=== PATIENT | female | born 1955 | race Caucasian/White ===

== ENCOUNTER 2021-10-09 21:03 | Inpatient (IN) ==
[2021-10-09] MEDS ORDERED: 0.9 % SODIUM CHLORIDE 1,000 ML IV ONE (21:12)
[2021-10-09 21:57] LABS: POC Blood Urea Nitrogen 33 mg/dL (6-20); POC CO2 22 mmol/L (22-30); POC Calcium, Ionized 1.06 mmEq/L (1.16-1.32); POC Chloride 99 mEq/L (96-108); POC Creatinine 3.3 mg/dL (0.6-1.2); POC Glucose, Random 136 mg/dL (70-105); POC Hematocrit 30 % (36-48); POC Potassium 4.8 mEql/L (3.3-5.1); POC Sodium 132 mEq/L (133-145)
[2021-10-09 22:42] LABS: Basophils # (Auto) 0.06 K/mcL (0.00-0.30); Basophils % (Auto) 0.6 % (0.0-2.0); Eosinophils # (Auto) 0.35 K/mcL (0.00-0.70); Eosinophils % (Auto) 3.3 % (0.0-7.0); Hematocrit 31.7 % (34.1-44.9); Hemoglobin 10.3 g/dL (11.2-15.7); Lymphocytes % (Auto) 11.3 % (15.5-49.0); Mean Cell Volume 93.5 fL (80.0-100.0); Mean Corpuscular HGB Conc 32.5 g/dL (31.0-36.0); Mean Platelet Volume 10.3 fL (7.4-10.4); Monocytes # (Auto) 0.82 K/mcL (0.10-0.90); Monocytes % (Auto) 7.7 % (1.0-12.0); Neutrophils % (Auto) 77.1 % (38.0-78.0); Platelet Count 314 K/mcL (140-440); RBC 3.39 M/mcL (3.59-5.38); Red Cell Distribution Width 14.7 % (11.5-14.5); WBC 10.7 K/mcL (4.5-11.0)
[2021-10-09 23:01] LABS: ALT/SGPT 21 U/L (<40); AST/SGOT 34 U/L (<32); Albumin 3.6 gm/dL (3.2-5.2); Albumin/Globulin Ratio 1.1 (1.0-2.3); Alkaline Phosphatase 126 U/L (39-117); Bilirubin,Total 0.3 mg/dL (0.1-1.0); Blood Urea Nitrogen 32 mg/dL (8-23); Calcium 8.3 mg/dL (8.6-10.4); Carbon Dioxide 20 mmol/L (22-30); Chloride 94 mmol/L (96-108); Globulin 3.4 gm/dL (2.2-3.7); Glomerular Filtration Rate 16; Glucose 137 mg/dL (70-105)
[2021-10-09 23:21] LABS: Appearance,Urine HAZY (Clear); Bilirubin,Urine Negative (Negative); Color,Urine YELLOW; Culture Indicated,Urine No; Glucose,Urine (UA) Negative (Negative); Ketones,Urine Negative (Negative); Leukocyte Esterase,Urine Negative /uL (Negative); Nitrate,Urine Negative (Negative); Protein,Urine Negative (Negative); Specific Gravity,Urine 1.014 (1.000-1.035); Urine Blood Negative (Negative); Urobilinogen,Urine Negative
[2021-10-09] MEDS ORDERED: LACTATED RINGERS 1,000 ML IV ONE (23:41)
--- NOTE | 2021-10-09 23:50 | Internal Med History&Physical ---
HPI History of Present Illness Patient information: Note initiated : 10/09/21 at 11:48 pm Service Date, if different from initiated Date: [] Patient: Maria T King a 66 y/o F admitted on for Slurred speech, weak. Chief Complaint: [] History of present illness: Ms. King is a 66 year old female with a history of hypertension, hyperlipidemia, type 2 diabetes mellitus, GERD, chronic pain, breast cancer status post chemotherapy and radiation therapy who presented to the emergency department for generalized weakness and was found to have an acute kidney injury. The patient says that she has been feeling generally weak since she completed chemotherapy recently. The patient has a port in her right upper chest for treatment of the breast cancer. In the ED, the patient was tachycardic, low normal blood pressure, had an oxygen requirement of 2 L/min. There is no leukocytosis, hemoglobin was 10.3. Chemistry panel showed a sodium of 128, creatinine 2.9, lactic acid was 2.2. Patient received IV fluids. Chest x-ray was remarkable for possible left upper lobe infiltrates. Hospital medicine was consulted for admission. Review of systems Constitutional: Positive for fatigue Eyes: no vision changes or pain Cardiovascular: no chest pain, no palpitations Respiratory: no cough or dyspnea Gastrointestinal: no abdominal pain, no nausea, vomiting, or diarrhea Genitourinary: no dysuria or difficulty voiding Musculoskeletal: no arthralgia or myalgia Integumentary: no skin lesion or wound Neurological: no focal weakness or numbness Psychiatric: no anxiety or depression Physical exam Head: Atraumatic, normal inspection. Eyes: normal appearance, no scleral icterus. Neck: full ROM Respiratory: no respiratory distress. Cardiovascular: normal rate and rhythm, S1, S2. GI/Abdominal: soft, nontender, no guarding. Extremities: full range of motion, nontender. Neurological: CN II-XII intact, intact motor, intact sensation. Psychiatric: normal mood. Skin: warm, normal color PFSH PFSH All Active Problems (Updated 10/10/21 @ 02:40 by Grayson Pedraza DO) YAMEL (acute kidney injury) (Acute) Weakness (Acute) MEDS/ALLERGIES Home Medications and Allergies Home Medications Medication Instructions Recorded Confirmed Type amitriptyline 150 mg tablet 150 mg PO QHS 10/09/21 10/09/21 History atorvastatin 40 mg PO DAILY 10/09/21 10/09/21 History gabapentin 600 mg tablet 600 mg PO TID 10/09/21 10/09/21 History metformin 500 mg tablet 500 mg PO BID 10/09/21 10/09/21 History oxybutynin chloride 5 mg tablet 5 mg PO QDAY 10/09/21 10/09/21 History hydrochlorothiazide 12.5 mg capsule 12.5 mg PO QDAY 10/10/21 10/10/21 History letrozole 2.5 mg tablet 1 tab PO QDAY 10/10/21 10/10/21 History lisinopril 5 mg tablet 1 tab PO QDAY 10/10/21 10/10/21 History omeprazole 40 mg capsule,delayed 1 cap PO QDAY 10/10/21 10/10/21 History release oxycodone 10 mg tablet 1 tab PO Q4-6HP PRN 10/10/21 10/10/21 History sumatriptan succinate 100 mg tablet 100 mg PO PRN PRN 10/10/21 10/10/21 History Allergies Allergy/AdvReac Type Severity Reaction Status Date / Time tramadol AdvReac Intermediate Rash Verified 10/09/21 23:08 EXAM Constitutional Vitals: Pulse Resp BP Pulse Ox 96 H 25 H 124/83 93 10/09/21 22:57 10/09/21 22:57 10/09/21 22:46 10/09/21 22:57 DATA Data Completed and Pending Labs: Labs from last 24 hours 10/09/21 10/09/21 10/09/21 22:15 21:47 21:47 WBC RBC Hgb Hct POC Hct MCV MCH MCHC RDW Plt Count MPV Neut % (Auto) Lymph % (Auto) [place] % (Auto) Eos % (Auto) Baso % (Auto) Lymph # (Auto) [place] # (Auto) Eos # (Auto) Baso # (Auto) Absolute Neutrophils VBG Lactic Acid 2.2 H POC Sodium Sodium POC Potassium Potassium POC Chloride Chloride Carbon Dioxide POC Total CO2 Anion Gap POC BUN BUN Creatinine POC Creatinine GFR Calculation Glucose POC Glucose Calcium POC WB Ioniz Calcium Total Bilirubin AST ALT Alkaline Phosphatase Troponin T 0.02 Total Protein Albumin Globulin Albumin/Globulin Ratio Urine Color Yellow Urine Appearance Hazy A Urine pH 5.0 Ur Specific [place] 1.014 Urine Protein Negative Urine Glucose (UA) Negative Urine Ketones Negative Urine Occult Blood Negative Urine Nitrate Negative Urine Bilirubin Negative Urine Urobilinogen Negative Ur Leukocyte Esterase Negative Ur Culture Indicated? No 10/09/21 10/09/21 21:47 21:47 WBC 10.7 RBC 3.39 L Hgb 10.3 L Hct 31.7 L POC Hct 30 L MCV 93.5 MCH 30.4 MCHC 32.5 RDW 14.7 H Plt Count 314 MPV 10.3 Neut % (Auto) 77.1 Lymph % (Auto) 11.3 L Sherman % (Auto) 7.7 Eos % (Auto) 3.3 Baso % (Auto) 0.6 Lymph # (Auto) 1.20 L Sherman # (Auto) 0.82 Eos # (Auto) 0.35 Baso # (Auto) 0.06 Absolute Neutrophils 8.23 H VBG Lactic Acid POC Sodium 132 L Sodium 128 L POC Potassium 4.8 Potassium 4.6 POC Chloride 99 Chloride 94 L Carbon Dioxide 20 L POC Total CO2 22 Anion Gap 14.0 POC BUN 33 H BUN 32 H Creatinine 2.9 H POC Creatinine 3.3 H GFR Calculation 16 Glucose 137 H POC Glucose 136 H Calcium 8.3 L POC WB Ioniz Calcium 1.06 L Total Bilirubin 0.3 AST 34 H ALT 21 Alkaline Phosphatase 126 H Troponin T Total Protein 7.0 Albumin 3.6 Globulin 3.4 Albumin/Globulin Ratio 1.1 Urine Color Urine Appearance Urine pH Ur Specific [place] Urine Protein Urine Glucose (UA) Urine Ketones Urine Occult Blood Urine Nitrate Urine Bilirubin Urine Urobilinogen Ur Leukocyte Esterase Ur Culture Indicated? A/P Narrative A/P Narrative: Assessment: 66 year old female with a history of hypertension, hyperlipidemia, type 2 diabetes mellitus, GERD, chronic pain, breast cancer admitted for acute kidney injury and generalized weakness. The patient was moderately hyponatremic on admission. Lactic acid was 2.2. #Acute kidney injury -probably prerenal YAMEL -UA was benign -baseline renal function unknown #Possible left upper lobe infiltrates. #Mild lactic acid elevation #Hyponatremia, moderate #Generalized weakness #Type 2 diabetes mellitus #Normocytic anemia #Essential Hypertension #Hyperlipidemia #GERD #Chronic pain intermittently on opioids #History of breast cancer still has a port #Obesity BMI 40 Plan -IV fluid, monitor renal function and urine output. -Hold home lisinopril and metformin. -Ultrasound bilateral renal ultrasound. -CT chest without contrast. -Procalcitonin. -TSH and morning cortisol. -VBG to evaluate for CO2 retention. -Monitor vitals, if fever consider empiric abx as the patient has a port. -Follow blood cultures. -Follow PORSHA NAHED antigen from the ED. -Check respiratory panel 1 and 2. -Check hemoglobin A1c. -Urine drug screen. -Repeat lactic acid until downtrending. -Monitor hemoglobin, sodium. -Correction Humalog SSI-low. -Home medications reconciliation. 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 -Consistent carbohydrate diet. -PT consult. -DVT prophylaxis: Heparin SQ -Disposition: probably home when stable. Time Spent With Patient Time: Total time spent is greater than 50% in coordination of care (as documented) at patient's floor/unit and/or counseling patient:
[2021-10-10] MEDS ORDERED: DEXTROSE 31 GM ORAL.SUSP PO PRN (01:02)
[2021-10-10] MEDS ORDERED: ONDANSETRON 4 MG/2 ML VIAL IV PRN (01:02)
[2021-10-10] MEDS ORDERED: DEXTROSE 50% 50 ML VIAL IV PRN (01:02)
[2021-10-10] MEDS: ACETAMINOPHEN 325 MG TABLET PO PRN ×2 (02:16→09:15)
[2021-10-10] MEDS ORDERED: ACETAMINOPHEN 325 MG TABLET PO ONE (02:22)
[2021-10-10 02:37] LABS: Amphetamine Screen,Urine None detected; Barbiturate Screen,Urine None detected; Benzodiazepines Screen,Urine None detected; Cannabinoid Screen,Urine None detected; Cocaine Screen,Urine None detected; Opiate Screen,Urine Suspect Positive; Oxycodone, Urine Screen Suspect Positive; Phencyclidine Screen,Urine None detected
[2021-10-10] MEDS: LACTATED RINGERS 1,000 ML IV SCH ×4 (02:37→19:55)
--- NOTE | 2021-10-10 02:40 | Emergency Department Note ---
HPI General Chief complaint: Stroke Symptoms Stated complaint: Slurred speech, weak Time Seen by Provider: 10/09/21 21:12 Source: family Mode of arrival: other Limitations: altered mental status (Fatigued but able to answer direct questions) History of Present Illness HPI Narrative: Narrative: 66-year-old female with history of diabetes hypertension hyperlipidemia, chronic pain on chronic opiates (none taken over the past several days), breast cancer previously with chemo and radiation, port still in but has not received infusions in years presents with family for evaluation of generalized weakness that started this morning. She was in normal state of health, had slightly extended amount of sleep last night, but this morning seemed generally weak and fatigued and to her family sent initially like she was having some slurred speech. She has not had any fever or chills. She denies cough or congestion. She denies chest pain. She denies neck pain. She denies any trauma. She denies numbness or tingling or any focal weakness. She denies abdominal pain area. She denies dysuria or flank pain. Notable rashes. She has been eating and drinking normally by family report. Related Data Home Medications Medication Instructions Recorded Confirmed amitriptyline 150 mg tablet 150 mg PO QHS 10/09/21 10/09/21 atorvastatin 40 mg PO DAILY 10/09/21 10/09/21 gabapentin 600 mg tablet 600 mg PO TID 10/09/21 10/09/21 metformin 500 mg tablet 500 mg PO BID 10/09/21 10/09/21 oxybutynin chloride 5 mg tablet 5 mg PO QDAY 10/09/21 10/09/21 hydrochlorothiazide 12.5 mg capsule 12.5 mg PO QDAY 10/10/21 10/10/21 letrozole 2.5 mg tablet 1 tab PO QDAY 10/10/21 10/10/21 lisinopril 5 mg tablet 1 tab PO QDAY 10/10/21 10/10/21 omeprazole 40 mg capsule,delayed 1 cap PO QDAY 10/10/21 10/10/21 release oxycodone 10 mg tablet 1 tab PO Q4-6HP PRN 10/10/21 10/10/21 sumatriptan succinate 100 mg tablet 100 mg PO PRN PRN 10/10/21 10/10/21 Allergies Allergy/AdvReac Type Severity Reaction Status Date / Time tramadol AdvReac Intermediate Rash Verified 10/09/21 23:08 Review of Systems ROS ROS Narrative: Narrative: All systems ED: reviewed and negative except as stated. PFSH Narrative Patient History Narrative: Narrative: Medical/Surgical/Family History All Active Problems (Updated 10/10/21 @ 02:40 by Grayson Pedraza DO) YAMEL (acute kidney injury) (Acute) Weakness (Acute) Social History Smoking Status: Never smoker Exam Narrative Narrative: Narrative: General Limitations: altered mental status (Fatigued but able to answer direct questions) General appearance: Present sleepy Head Head: Present atraumatic and normocephalic Eye Eye: Present normal appearance, PERRL and EOMI; Absent nystagmus ENT ENT: Present normal oropharynx and mucous membranes dry Neck Neck: Present normal inspection and full ROM Chest Chest: Present normal inspection and symmetric chest wall rise Respiratory Respiratory: Absent respiratory distress Cardiovascular Cardiovascular: Present regular rate and normal rhythm Adbominal Abdominal: Present soft; Absent distention or tenderness Extremities Extremities: Present normal inspection and full ROM; Absent pedal edema Back Back: Present normal inspection and full ROM; Absent CVA tenderness (R) or CVA tenderness (L) Neurological Neurological: Present oriented X3, CN II-XII intact and other (NIH stroke scale 0); Absent motor sensory deficit Psychiatric Psychiatric: Present normal affect and normal mood Skin Skin: Present warm (WNL), dry and normal color Course Vital Signs Vital signs: Vital Signs Pulse Rate 96 H 10/09/21 21:04 Respiratory Rate 12 10/09/21 21:04 Blood Pressure 127/87 10/09/21 21:04 Pulse Oximetry (%) 91 10/09/21 21:04 Temperature 98.5 F 10/10/21 00:54 Pulse Rate 99 H 10/10/21 00:54 Respiratory Rate 20 10/10/21 00:54 Blood Pressure 111/71 10/10/21 00:54 Pulse Oximetry (%) 93 10/10/21 00:54 MDM MDM Narrative Medical decision making narrative: Narrative: Patient with generalized global weakness since this morning. She does have acute kidney injury, unclear etiology at this point is by report she has been keeping hydrated. She is given IV fluids. No postobstructive pattern. She does not have any clear source of infection so we will hold off on antibiotics and she will be monitored inpatient for further care. Blood cultures were sent. Urinalysis is normal. Lab Data Lab results reviewed: Yes I reviewed the patient's lab results. Result diagrams: 10/09/21 21:47 10/09/21 21:47 Labs: Lab Results 10/09/21 10/09/21 10/09/21 Range/Units 21:47 21:47 21:47 WBC 10.7 (4.5-11.0) K/mcL RBC 3.39 L (3.59-5.38) M/mcL Hgb 10.3 L (11.2-15.7) g/dL Hct 31.7 L (34.1-44.9) % POC Hct 30 L (36-48) % MCV 93.5 (80.0-100.0) fL MCH 30.4 (26.0-34.0) pg MCHC 32.5 (31.0-36.0) g/dL RDW 14.7 H (11.5-14.5) % Plt Count 314 (140-440) K/mcL MPV 10.3 (7.4-10.4) fL Neut % (Auto) 77.1 (38.0-78.0) % Lymph % (Auto) 11.3 L (15.5-49.0) % [place] % (Auto) 7.7 (1.0-12.0) % Eos % (Auto) 3.3 (0.0-7.0) % Baso % (Auto) 0.6 (0.0-2.0) % Lymph # (Auto) 1.20 L (1.50-4.80) K/mcL Williams # (Auto) 0.82 (0.10-0.90) K/mcL Eos # (Auto) 0.35 (0.00-0.70) K/mcL Baso # (Auto) 0.06 (0.00-0.30) K/mcL Absolute Neutrophils 8.23 H (1.80-8.00) K/mcL VBG Lactic Acid 2.2 H (0.5-2.0) mmol/L POC Sodium 132 L (133-145) mEq/L Sodium 128 L (133-145) mmol/L POC Potassium 4.8 (3.3-5.1) mEql/L Potassium 4.6 (3.3-5.1) mmol/L POC Chloride 99 (96-108) mEq/L Chloride 94 L (96-108) mmol/L Carbon Dioxide 20 L (22-30) mmol/L POC Total CO2 22 (22-30) mmol/L Anion Gap 14.0 (8.0-16.0) POC BUN 33 H (6-20) mg/dL BUN 32 H (8-23) mg/dL Creatinine 2.9 H (0.6-1.1) mg/dL POC Creatinine 3.3 H (0.6-1.2) mg/dL GFR Calculation 16 Glucose 137 H (70-105) mg/dL POC Glucose 136 H (70-105) mg/dL Calcium 8.3 L (8.6-10.4) mg/dL POC WB Ioniz Calcium 1.06 L (1.16-1.32) mmEq/L Total Bilirubin 0.3 (0.1-1.0) mg/dL AST 34 H (<32) U/L ALT 21 (<40) U/L Alkaline Phosphatase 126 H (39-117) U/L Troponin T (<0.03) ng/mL Total Protein 7.0 (5.9-8.4) gm/dL Albumin 3.6 (3.2-5.2) gm/dL Globulin 3.4 (2.2-3.7) gm/dL Albumin/Globulin Ratio 1.1 (1.0-2.3) Urine Color Urine Appearance (Clear) Urine pH (5.0-9.0) Ur Specific [place] (1.000-1.035) Urine Protein (Negative) mg/dL Urine Glucose (UA) (Negative) mg/dL Urine Ketones (Negative) mg/dL Urine Occult Blood (Negative) mg/dL Urine Nitrate (Negative) Urine Bilirubin (Negative) mg/dL Urine Urobilinogen mg/dL Ur Leukocyte Esterase (Negative) /uL Ur Culture Indicated? 10/09/21 10/09/21 Range/Units 21:47 22:15 WBC (4.5-11.0) K/mcL RBC (3.59-5.38) M/mcL Hgb (11.2-15.7) g/dL Hct (34.1-44.9) % POC Hct (36-48) % MCV (80.0-100.0) fL MCH (26.0-34.0) pg MCHC (31.0-36.0) g/dL RDW (11.5-14.5) % Plt Count (140-440) K/mcL MPV (7.4-10.4) fL Neut % (Auto) (38.0-78.0) % Lymph % (Auto) (15.5-49.0) % Williams % (Auto) (1.0-12.0) % Eos % (Auto) (0.0-7.0) % Baso % (Auto) (0.0-2.0) % Lymph # (Auto) (1.50-4.80) K/mcL [place] # (Auto) (0.10-0.90) K/mcL Eos # (Auto) (0.00-0.70) K/mcL Baso # (Auto) (0.00-0.30) K/mcL Absolute Neutrophils (1.80-8.00) K/mcL VBG Lactic Acid (0.5-2.0) mmol/L POC Sodium (133-145) mEq/L Sodium (133-145) mmol/L POC Potassium (3.3-5.1) mEql/L Potassium (3.3-5.1) mmol/L POC Chloride (96-108) mEq/L Chloride (96-108) mmol/L Carbon Dioxide (22-30) mmol/L POC Total CO2 (22-30) mmol/L Anion Gap (8.0-16.0) POC BUN (6-20) mg/dL BUN (8-23) mg/dL Creatinine (0.6-1.1) mg/dL POC Creatinine (0.6-1.2) mg/dL GFR Calculation Glucose (70-105) mg/dL POC Glucose (70-105) mg/dL Calcium (8.6-10.4) mg/dL POC WB Ioniz Calcium (1.16-1.32) mmEq/L Total Bilirubin (0.1-1.0) mg/dL AST (<32) U/L ALT (<40) U/L Alkaline Phosphatase (39-117) U/L Troponin T 0.02 (<0.03) ng/mL Total Protein (5.9-8.4) gm/dL Albumin (3.2-5.2) gm/dL Globulin (2.2-3.7) gm/dL Albumin/Globulin Ratio (1.0-2.3) Urine Color Yellow Urine Appearance Hazy A (Clear) Urine pH 5.0 (5.0-9.0) Ur Specific [place] 1.014 (1.000-1.035) Urine Protein Negative (Negative) mg/dL Urine Glucose (UA) Negative (Negative) mg/dL Urine Ketones Negative (Negative) mg/dL Urine Occult Blood Negative (Negative) mg/dL Urine Nitrate Negative (Negative) Urine Bilirubin Negative (Negative) mg/dL Urine Urobilinogen Negative mg/dL Ur Leukocyte Esterase Negative (Negative) /uL Ur Culture Indicated? No ED POC Tests ED POC Tests: PORSHA - SARS Antigen Negative Radiology Data Radiology results reviewed: Yes I reviewed the patient's radiology results. EKG Data EKG #1: EKG attestation: Yes I reviewed and interpreted this EKG. and Yes There are no EKG findings of acute coronary syndrome EKG results narrative: Sinus rhythm at a rate of 95. Normal axis. QTC 503. High lateral and lateral T wave flattening. No other acute ST-T changes. Borderline EKG. Discharge Plan Patient/Caregiver Discharge Instructions Pt seen by THEATER USHER/PA only: No Clinical Impression: YAMEL (acute kidney injury), Weakness Patient Disposition: Xfer As Inpt ([facility]) Discharge Date/Time: 10/10/21 00:54
[2021-10-10 02:45] LABS: Estimated Average Glucose(eAG) 151 mg/dL; Hemoglobin A1C 6.9 % Hgb (4.0-6.0)
[2021-10-10] MEDS: 0.9 % SODIUM CHLORIDE 10 ML SYRINGE IV SCH ×3 (05:43→20:24)
--- NOTE | 2021-10-10 05:48 | XRay Report ---
INDICATION: weak. History of breast cancer TECHNIQUE: AP portable semiupright chest x-ray COMPARISON: Previous chest x-ray dated 05/12/2021 FINDINGS:Right-sided Port-A-Cath with its tip in the superior cava. This is unchanged Lungs:Lungs are suboptimally visualized on this AP semiupright portable chest x-ray. Left upper lobe infiltrates are suspected. Follow-up PA and lateral chest x-ray recommended when clinically appropriate. Heart, vascular:There is cardiomegaly. No evidence for congestive heart failure Mediastinum, marti:Mediastinum appears somewhat wide but this is probably magnification secondary to AP positioning Pleura:Chronic elevation right hemidiaphragm Skeletal:Negative. IMPRESSION: 1. Suboptimal evaluation. Recommend PA and lateral chest x-ray when clinically appropriate 2. Probable left upper lobe infiltrates. Pneumonia is possible Interpreted and Authenticated by: Gary Frausto 10/10/21
--- NOTE | 2021-10-10 05:49 | Cat Scan Report ---
INDICATION: weak COMPARISON: Previous noncontrast enhanced brain CT scans dated 05/12/2021, 12/22/2020 TECHNIQUE: Axial noncontrast-enhanced images through the brain. Sagittally and coronally reformatted images. FINDINGS: Examination was initially interpreted by [facility] Cerebral hemispheres:Negative. No intra-axial abnormality. No intra-axial hematoma. No localized mass effect.Brain volume is within normal limits for age. Periventricular white matter is negative without significant attenuation abnormality. Brainstem and cerebellum:No intra-axial abnormality Extra-axial:No acute hemorrhage. No subdural or epidural hematoma. No subarachnoid hemorrhage. Basilar cisterns are normal Calvarial:No calvarial fracture. No lytic lesion Temporal bones are negative. No destructive lesions Soft tissue, orbits, sinuses:Orbits and visualized facial soft tissues and paranasal sinuses are negative IMPRESSION: Negative noncontrast enhanced brain CT scan The exam was performed using radiation dose optimization techniques including, but not limited to, automated exposure control, adjustment of the mA and/or kV according to patient size and use of iterative reconstruction technique. Interpreted and Authenticated by: Gary Frausto 10/10/21
[2021-10-10 07:02] LABS: Hematocrit 29.2 % (34.1-44.9); Hemoglobin 9.4 g/dL (11.2-15.7); Mean Cell Volume 93.3 fL (80.0-100.0); Mean Corpuscular HGB Conc 32.2 g/dL (31.0-36.0); Mean Platelet Volume 10.4 fL (7.4-10.4); Platelet Count 271 K/mcL (140-440); RBC 3.13 M/mcL (3.59-5.38); Red Cell Distribution Width 14.5 % (11.5-14.5); WBC 8.6 K/mcL (4.5-11.0)
[2021-10-10] MEDS ORDERED: OMEPRAZOLE 20 MG CAPSULE PO SCH (07:30)
[2021-10-10 07:36] LABS: ALT/SGPT 18 U/L (<40); AST/SGOT 28 U/L (<32); Albumin 3.6 gm/dL (3.2-5.2); Albumin/Globulin Ratio 1.2 (1.0-2.3); Alkaline Phosphatase 126 U/L (39-117); Bilirubin,Direct < 0.2 mg/dL (0-0.3); Bilirubin,Total 0.3 mg/dL (0.1-1.0); Blood Urea Nitrogen 30 mg/dL (8-23); Carbon Dioxide 23 mmol/L (22-30); Chloride 98 mmol/L (96-108); Globulin 3.1 gm/dL (2.2-3.7); Glomerular Filtration Rate 26; Glucose 126 mg/dL (70-105); Lactate Dehydrogenase 169 U/L (135-225); Phosphorous 3.8 mg/dL (2.5-4.5); Triglycerides 273 mg/dL (<150); Uric Acid 7.7 mg/dL (2.5-8.0)
[2021-10-10 07:47] LABS: Band Neutrophils % 1 % (0-10); Eosinophils % (Manual) 6 % (0-7); Lymphocytes % 14 % (15-49); Monocytes % (Manual) 9 % (1-12); Platelet Estimate NORMAL (Normal); RBC Morphology NORMAL (Normal); Segmented Neutrophils % 70 % (38-78)
[2021-10-10] MEDS ORDERED: OXYBUTYNIN CHLORIDE 5 MG TABLET PO SCH (09:00)
[2021-10-10] MEDS: HEPARIN 5,000 UNIT/ML VIAL SQ SCH ×2 (09:13→20:23)
[2021-10-10] MEDS: INSULIN LISPRO 1 UNIT/0.01 ML UNIT SQ SCH ×4 (09:14→20:24)
[2021-10-10] MEDS: DOCUSATE SODIUM 100 MG CAPSULE PO SCH ×2 (09:15→20:23)
[2021-10-10] MEDS: ATORVASTATIN 40 MG TABLET PO SCH (09:25)
[2021-10-10] MEDS ORDERED: LEVOFLOXACIN 750 MG/150 ML BAG IV SCH (10:00)
--- NOTE | 2021-10-10 10:39 | Ultrasound Report ---
INDICATION: Acute kidney injury TECHNIQUE: Grayscale and color flow Doppler spectral imaging. COMPARISON: None. FINDINGS: Right kidney: Right kidney [id number] x 5.6 x 5.5 cm. There is no hydronephrosis. No solid right renal mass. Renal cortex is normal. No detectable calculi. Left kidney: Left kidney [id number] x 5.0 x 5.6 cm. There is no hydronephrosis. No solid left renal mass. Renal cortex is normal. No detectable calculi. Bladder: There is a Hutchinson catheter in place. Despite catheterized bladder the bladder is somewhat distended and measures 852 mL and volume. No detectable calculi or mass IMPRESSION: 1. Negative kidneys 2. Distended bladder despite Hutchinson catheter in place Interpreted and Authenticated by: Gary Frausto 10/10/21
[2021-10-10 10:53] LABS: ABG Methemoglobin 0.2 % (0.4-1.5); Total Hemoglobin 11.2 gm/Dl (12.0-15.0); VBG Base Excess -2 (-2-3); VBG HCO3 24.4 mmol/L (24.0-28.0); VBG Oxygen Saturation 92.8 % (40.0-70.0); VBG PCO2 48.4 mmHg (41.0-51.0); VBG PH 7.32 U (7.32-7.42); VBG PO2 119.7 mmHg (25.0-40.0); VBG Total CO2 25.9 mmol/L (25.0-29.0)
--- NOTE | 2021-10-10 11:22 | Cat Scan Report ---
INDICATION: Possible left upper lobe pneumonia. COMPARISON: Previous chest x-rays dated 10/09/2021, 05/12/2021. Previous PET CT scan dated 05/19/2021. Routine chest CT scan dated 09/18/2020 TECHNIQUE: Axial noncontrast enhanced images through the chest. Sagittally and coronally reformatted images. MIP reformatted images. FINDINGS: Lungs:Suboptimal evaluation due to inability to suspend respiration. Lungs appear somewhat low volume bilaterally. There are parenchymal densities in both lungs. These are predominantly linear and most consistent with atelectasis. Left upper lobe and right lower lobe predominance. No parenchymal consolidation demonstrated. There is no discrete mass. Mediastinum, vascular:No pathologic mediastinal or hilar adenopathy Thoracic aorta is negative. No aneurysmal dilatation There is a left-sided substernal goiter. This is unchanged since 09/18/2020 Heart:No significant cardiomegaly. No pericardial effusion Pleura:Elevated right hemidiaphragm is chronic. No significant pleural effusion Axilla, supraclavicular regions, chest wall:There are surgical clips in the left axilla. This patient has a history of breast cancer. There are surgical clips in the upper, medial left breast There is a right-sided Port-A-Cath with its tip in the superior vena cava Musculoskeletal:No thoracic compression fractures. No lytic lesions. No sternal or rib lesions Upper Abdomen:Negative to the limits of noncontrast enhanced examination IMPRESSION: 1. Suboptimal evaluation due to patient motion 2. Chronic elevation right hemidiaphragm 3. Linear densities in both lungs consistent with atelectasis 4. Left breast cancer with previous lumpectomy and axillary node dissection 5. Left-sided substernal goiter, unchanged since 09/18/2020 The exam was performed using radiation dose optimization techniques including, but not limited to, automated exposure control, adjustment of the mA and/or kV according to patient size and use of iterative reconstruction technique. Interpreted and Authenticated by: Gary Frausto 10/10/21
[2021-10-10] MEDS ORDERED: NON FORMULARY MEDICATION 1 DOSE MISCELL (Oxycodone 10 mg tablet) PO PRN (13:29)
--- NOTE | 2021-10-10 13:32 | Internal Med Progress Note ---
SUBJECTIVE Subjective Patient information: Note initiated : 10/10/21 at 1:22 pm Service Date, if different from initiated Date: [] Patient: Maria T King 66 y/o F admitted on 10/10/21 for Slurred speech, weak. Chief Complaint: [] Interval history: History of present illness: Ms. King is a 66 year old female with a history of hypertension, hy perlipidemia, type 2 diabetes mellitus, GERD, chronic pain, breast cancer status post chemotherapy and radiation therapy who presented to the emergency department for generalized weakness and was found to have an acute kidney injury. The patient says that she has been feeling generally weak since she completed chemotherapy recently. The patient has a port in her right upper chest for treatment of the breast cancer. In the ED, the patient was tachycardic, low normal blood pressure, had an oxygen requirement of 2 L/min. There is no leukocytosis, hemoglobin was 10.3. Chemistry panel showed a sodium of 128, creatinine 2.9, lactic acid was 2.2. Patient received IV fluids. Chest x-ray was remarkable for possible left upper lobe infiltrates. Hospital medicine was consulted for admission. 10/11 Constitutional Vitals: Vital Signs Temp Pulse Resp BP Pulse Ox 98.8 F 83 16 142/79 96 10/10/21 12:00 10/10/21 12:00 10/10/21 12:00 10/10/21 12:00 10/10/21 12:00 Period Temp Pulse Resp BP Sys/Moreira Pulse Ox Last 24 Hr 97.6 F-98.8 F 83-103 12-28 102-143/60-128 87-98 Intake and Output 10/09/21 10/10/21 10/10/21 21:59 05:59 13:59 Intake Total 1999 856 Output Total 1 Balance 1998 856 Weight 117.48 kg 117.48 kg Intake & Output: Intake & Output 10/09/21 10/10/21 10/10/21 21:59 05:59 13:59 Intake Total 1999 856 Output Total 1 Balance 1998 856 Weight 117.48 kg 117.48 kg Intake: IV 1999 856 Sodium Chloride 0.9% 1,000 ml @ 1000 Wide Open IV .Q0M ONE Rx#: [id number] Lactated Ringers 1,000 ml @ 125 1000 856 mls/hr IV .Q8H KATIE Rx#: [id number] Output: # of times incontinent of urine 1 Exam: General: Alert, Awake, No acute Distress, obese Eyes/N/T: EOMI, Head/Neck: neck supple, CV: RRR, No murmurs, Pulm: Clear b/l, no wheezing/rhonchi/rales Abd: soft, nontender, +BS x4 Ext: no clubbing/cyanosis/edema Neuro: Alert, no focal deficits, moves all extremities, Skin: warm/dry OBJ DATA Labs CBC & Chem 7: 10/10/21 05:26 10/10/21 05:26 Labs: Abnormal Lab Results 10/10/21 10/10/21 10/10/21 21:47 10:21 10:21 RBC Hgb Hct POC Hct RDW Lymph % (Auto) Lymph # (Auto) Lymphocytes % Absolute Neutrophils ABG Methemoglobin 0.2 L VBG pO2 119.7 H VBG O2 Saturation 92.8 H VBG Lactic Acid Carboxyhemoglobin 5.2 H Total Hemoglobin 11.2 L POC Sodium Sodium Chloride Carbon Dioxide POC BUN BUN Creatinine POC Creatinine Glucose POC Glucose Hemoglobin A1c 6.9 H Calcium POC WB Ioniz Calcium GGT AST Alkaline Phosphatase Triglycerides Procalcitonin 0.19 H Urine Appearance Urine Opiates Screen Ur Oxycodone Screen 10/10/21 10/10/21 10/10/21 05:26 05:26 01:54 RBC 3.13 L Hgb 9.4 L Hct 29.2 L POC Hct RDW Lymph % (Auto) Lymph # (Auto) Lymphocytes % 14 L Absolute Neutrophils ABG Methemoglobin VBG pO2 VBG O2 Saturation VBG Lactic Acid Carboxyhemoglobin Total Hemoglobin POC Sodium Sodium 132 L Chloride Carbon Dioxide POC BUN BUN 30 H Creatinine 2.0 H POC Creatinine Glucose 126 H POC Glucose Hemoglobin A1c Calcium 8.0 L POC WB Ioniz Calcium GGT 51 H AST Alkaline Phosphatase 126 H Triglycerides 273 H Procalcitonin Urine Appearance Urine Opiates Screen Suspect positive A Ur Oxycodone Screen Suspect positive A 10/09/21 10/09/21 10/09/21 22:15 21:47 21:47 RBC Hgb Hct POC Hct 30 L RDW Lymph % (Auto) Lymph # (Auto) Lymphocytes % Absolute Neutrophils ABG Methemoglobin VBG pO2 VBG O2 Saturation VBG Lactic Acid 2.2 H Carboxyhemoglobin Total Hemoglobin POC Sodium 132 L Sodium 128 L Chloride 94 L Carbon Dioxide 20 L POC BUN 33 H BUN 32 H Creatinine 2.9 H POC Creatinine 3.3 H Glucose 137 H POC Glucose 136 H Hemoglobin A1c Calcium 8.3 L POC WB Ioniz Calcium 1.06 L GGT AST 34 H Alkaline Phosphatase 126 H Triglycerides Procalcitonin Urine Appearance Hazy A Urine Opiates Screen Ur Oxycodone Screen 10/09/21 21:47 RBC 3.39 L Hgb 10.3 L Hct 31.7 L POC Hct RDW 14.7 H Lymph % (Auto) 11.3 L Lymph # (Auto) 1.20 L Lymphocytes % Absolute Neutrophils 8.23 H ABG Methemoglobin VBG pO2 VBG O2 Saturation VBG Lactic Acid Carboxyhemoglobin Total Hemoglobin POC Sodium Sodium Chloride Carbon Dioxide POC BUN BUN Creatinine POC Creatinine Glucose POC Glucose Hemoglobin A1c Calcium POC WB Ioniz Calcium GGT AST Alkaline Phosphatase Triglycerides Procalcitonin Urine Appearance Urine Opiates Screen Ur Oxycodone Screen Meds: Medications Acetaminophen (Acetaminophen 325 Mg Tablet) 650 mg PO Q6HP PRN; Protocol PRN Reason: Per Pain Protocol/Fever > 101 Last Admin: 10/10/21 09:15 Dose: 650 mg Documented by: Amitriptyline HCl (Amitriptyline 25 Mg Tablet) 150 mg PO HS [facility] Atorvastatin Calcium (Atorvastatin 40 Mg Tablet) 40 mg PO DAILY [facility] Last Admin: 10/10/21 09:25 Dose: 40 mg Documented by: Dextrose (Dextrose 50% 50 Ml Vial) 0 ml IV UD PRN PRN Reason: Per Sliding Scale Diagnostic Test (Pha) (Accu-Chek 1 Each Strip) 1 each FS ACHS [facility] Last Admin: 10/10/21 12:31 Dose: 1 each Documented by: Docusate Sodium (Docusate Sodium 100 Mg Capsule) 100 mg PO BID [facility] Last Admin: 10/10/21 09:15 Dose: 100 mg Documented by: Glucose (Dextrose 31 Gm Oral.Susp) 15 gm PO PRN PRN PRN Reason: Hypoglycemia Heparin Sodium (Porcine) (Heparin 5,000 Unit/Ml Vial) 5,000 unit SQ Q12 [facility] Last Admin: 10/10/21 09:13 Dose: 5,000 unit Documented by: Lactated Ringer's (Lactated Ringers) 1,000 mls @ 125 mls/hr IV .Q8H [facility] Last Admin: 10/10/21 09:28 Dose: 125 mls/hr Documented by: Insulin Human Lispro (Insulin Lispro 1 Unit/0.01 Ml Unit) 0 unit SQ ACHS [facility]; Protocol Last Admin: 10/10/21 12:30 Dose: 1 units Documented by: Omeprazole (Omeprazole 20 Mg Capsule) 40 mg PO ACB [facility] Ondansetron HCl (Ondansetron 4 Mg/2 Ml Vial) 4 mg IV Q6HP PRN PRN Reason: Nausea And Vomiting Oxybutynin Chloride (Oxybutynin Chloride 5 Mg Tablet) 5 mg PO BID [facility] Senna (Sennosides 1 Tablet) 2 tab PO HS [facility] Sodium Chloride (0.9 % Sodium Chloride 10 Ml Syringe) 10 ml IV Q8 [facility] Last Admin: 10/10/21 05:43 Dose: Not Given Documented by: ABG Interpretation ABG results: 10/10/21 10:21 ABG Methemoglobin 0.2 L VBG pH 7.32 VBG pCO2 48.4 VBG pO2 119.7 H VBG HCO3 24.4 VBG Total CO2 25.9 VBG O2 Saturation 92.8 H VBG Base Excess -2 A/P Narrative A/P Narrative: A: #YAMEL on likely CKD III-Iv (unknown baseline): likely prerenal -UA was benign #atelectasis: on room air. #Acute hypoxic respiratory: -on 2L NC #Mild lactic acid elevation: resolved #Hyponatremia, moderate: TSH/cortisol ok. Pt is on HCTZ #Generalized weakness: #DM 2: A1c 6.9 #Normocytic anemia: #HTN/HLD: #GERD: #Chronic pain intermittently on opioids: #h/o breast ca still has a port #Obesity: BMI 40 Plan: -IV fluid, monitor renal function and urine output -Hold home lisinopril and metformin -IS, wean O2 -Check hemoglobin A1c -SSI -hold home HCTZ for hyponatremia -PT consult. -ppx: Heparin SQ / home ppi Time Spent With Patient Time: Total time spent is greater than 50% in coordination of care (as documented) at patient's floor/unit and/or counseling patient: QUALITY VTE Deep Vein Thrombosis/Pulmonary Embolism Present on Admission: No
[2021-10-10] MEDS ORDERED: SUMAtriptan SUCCINATE 50 MG TABLET PO PRN (13:37)
[2021-10-10] MEDS: OXYBUTYNIN CHLORIDE 5 MG TABLET PO SCH (20:23)
[2021-10-10] MEDS ORDERED: AMITRIPTYLINE 25 MG TABLET PO SCH (21:00)
[2021-10-10] MEDS ORDERED: SENNOSIDES 1 TABLET PO SCH (21:00)
[2021-10-10] MEDS: oxyCODONE HCL 5 MG TABLET PO PRN (21:06)
[2021-10-11] MEDS: LACTATED RINGERS 1,000 ML IV SCH ×2 (00:44→05:51)
[2021-10-11] MEDS: oxyCODONE HCL 5 MG TABLET PO PRN (03:48)
[2021-10-11] MEDS: 0.9 % SODIUM CHLORIDE 10 ML SYRINGE IV SCH (05:37)
--- NOTE | 2021-10-11 07:22 | Internal Med Progress Note ---
SUBJECTIVE Subjective Patient information: Note initiated : 10/11/21 at 7:18 am Service Date, if different from initiated Date: [] Patient: Maria T King 66 y/o F admitted on 10/10/21 for Slurred speech, weak. Chief Complaint: [] Interval history: History of present illness: Ms. Knig is a 66 year old female with a history of hypertension, hy perlipidemia, type 2 diabetes mellitus, GERD, chronic pain, breast cancer status post chemotherapy and radiation therapy who presented to the emergency department for generalized weakness and was found to have an acute kidney injury. The patient says that she has been feeling generally weak since she completed chemotherapy recently. The patient has a port in her right upper chest for treatment of the breast cancer. In the ED, the patient was tachycardic, low normal blood pressure, had an oxygen requirement of 2 L/min. There is no leukocytosis, hemoglobin was 10.3. Chemistry panel showed a sodium of 128, creatinine 2.9, lactic acid was 2.2. Patient received IV fluids. Chest x-ray was remarkable for possible left upper lobe infiltrates. Hospital medicine was consulted for admission. 10/11 Patient had poor sleep last night because she was anxious, thinking about her who has Lewy body dementia. Sodium 133 today. Renal function much improved. Review of Systems: denies headache/fever/chills/nausea/vomiting/chest or abdominal pain/cough/dyspnea/diarrhea. Otherwise see above. Constitutional Vitals: Vital Signs Temp Pulse Resp BP Pulse Ox 96.1 F L 95 H 20 160/89 92 10/11/21 03:18 10/11/21 03:18 10/11/21 03:18 10/11/21 03:18 10/11/21 03:18 Period Temp Pulse Resp BP Sys/Moreira Pulse Ox Last 24 Hr 96.1 F-98.8 F 83-95 12-20 110-160/68-89 92-96 Intake and Output 10/10/21 10/11/21 10/11/21 21:59 05:59 13:59 Intake Total 1550 1793 Output Total 2750 2700 Balance -1200 -907 Weight 117.48 kg Intake & Output: Intake & Output 10/10/21 10/11/21 10/11/21 21:59 05:59 13:59 Intake Total 1550 1793 Output Total 2750 2700 Balance -1200 -907 Weight 117.48 kg Intake: IV 1150 993 Lactated Ringers 1,000 ml @ 100 1000 993 mls/hr IV .Q10H [facility] Rx#: [id number] Oral 800 GI Tube Flush 400 Output: Urine Catheter Amount 2450 2700 Straight 2450 Void Amount 300 Other: Meal Dinner Percent of Meal Consumed 100% Feeding Ability Independent Urine Appearance Clear Clear Straight Clear Urine Color Pale Pale Straight Pale Urine Odor Normal Normal Straight Normal Stool Size Large Stool Color Brown Stool Consistency Soft Exam: General: Alert, Awake, No acute Distress, obese Eyes/N/T: EOMI, Head/Neck: neck supple, CV: RRR, No murmurs, Pulm: Clear b/l, no wheezing/rhonchi/rales Abd: soft, nontender, +BS x4 Ext: no clubbing/cyanosis/edema Neuro: Alert, no focal deficits, moves all extremities, Skin: warm/dry OBJ DATA Labs CBC & Chem 7: 10/10/21 05:26 10/11/21 05:54 Labs: Abnormal Lab Results 10/10/21 10/10/21 10/10/21 21:47 10:21 10:21 RBC Hgb Hct POC Hct RDW Lymph % (Auto) Lymph # (Auto) Lymphocytes % Absolute Neutrophils ABG Methemoglobin 0.2 L VBG pO2 119.7 H VBG O2 Saturation 92.8 H VBG Lactic Acid Carboxyhemoglobin 5.2 H Total Hemoglobin 11.2 L POC Sodium Sodium Chloride Carbon Dioxide POC BUN BUN Creatinine POC Creatinine Glucose POC Glucose Hemoglobin A1c 6.9 H Calcium POC WB Ioniz Calcium GGT AST Alkaline Phosphatase Triglycerides Procalcitonin 0.19 H Urine Appearance Urine Opiates Screen Ur Oxycodone Screen 10/10/21 10/10/21 10/10/21 05:26 05:26 01:54 RBC 3.13 L Hgb 9.4 L Hct 29.2 L POC Hct RDW Lymph % (Auto) Lymph # (Auto) Lymphocytes % 14 L Absolute Neutrophils ABG Methemoglobin VBG pO2 VBG O2 Saturation VBG Lactic Acid Carboxyhemoglobin Total Hemoglobin POC Sodium Sodium 132 L Chloride Carbon Dioxide POC BUN BUN 30 H Creatinine 2.0 H POC Creatinine Glucose 126 H POC Glucose Hemoglobin A1c Calcium 8.0 L POC WB Ioniz Calcium GGT 51 H AST Alkaline Phosphatase 126 H Triglycerides 273 H Procalcitonin Urine Appearance Urine Opiates Screen Suspect positive A Ur Oxycodone Screen Suspect positive A 10/09/21 10/09/21 10/09/21 22:15 21:47 21:47 RBC Hgb Hct POC Hct 30 L RDW Lymph % (Auto) Lymph # (Auto) Lymphocytes % Absolute Neutrophils ABG Methemoglobin VBG pO2 VBG O2 Saturation VBG Lactic Acid 2.2 H Carboxyhemoglobin Total Hemoglobin POC Sodium 132 L Sodium 128 L Chloride 94 L Carbon Dioxide 20 L POC BUN 33 H BUN 32 H Creatinine 2.9 H POC Creatinine 3.3 H Glucose 137 H POC Glucose 136 H Hemoglobin A1c Calcium 8.3 L POC WB Ioniz Calcium 1.06 L GGT AST 34 H Alkaline Phosphatase 126 H Triglycerides Procalcitonin Urine Appearance Hazy A Urine Opiates Screen Ur Oxycodone Screen 10/09/21 21:47 RBC 3.39 L Hgb 10.3 L Hct 31.7 L POC Hct RDW 14.7 H Lymph % (Auto) 11.3 L Lymph # (Auto) 1.20 L Lymphocytes % Absolute Neutrophils 8.23 H ABG Methemoglobin VBG pO2 VBG O2 Saturation VBG Lactic Acid Carboxyhemoglobin Total Hemoglobin POC Sodium Sodium Chloride Carbon Dioxide POC BUN BUN Creatinine POC Creatinine Glucose POC Glucose Hemoglobin A1c Calcium POC WB Ioniz Calcium GGT AST Alkaline Phosphatase Triglycerides Procalcitonin Urine Appearance Urine Opiates Screen Ur Oxycodone Screen Meds: Medications Acetaminophen (Acetaminophen 325 Mg Tablet) 650 mg PO Q6HP PRN; Protocol PRN Reason: Per Pain Protocol/Fever > 101 Last Admin: 10/10/21 09:15 Dose: 650 mg Documented by: Amitriptyline HCl (Amitriptyline 25 Mg Tablet) 150 mg PO HS [facility] Last Admin: 10/10/21 20:23 Dose: 150 mg Documented by: Atorvastatin Calcium (Atorvastatin 40 Mg Tablet) 40 mg PO DAILY [facility] Last Admin: 10/10/21 09:25 Dose: 40 mg Documented by: Dextrose (Dextrose 50% 50 Ml Vial) 0 ml IV UD PRN PRN Reason: Per Sliding Scale Diagnostic Test (Pha) (Accu-Chek 1 Each Strip) 1 each FS ACHS [facility] Last Admin: 10/10/21 20:12 Dose: 1 each Documented by: Docusate Sodium (Docusate Sodium 100 Mg Capsule) 100 mg PO BID [facility] Last Admin: 10/10/21 20:23 Dose: 100 mg Documented by: Glucose (Dextrose 31 Gm Oral.Susp) 15 gm PO PRN PRN PRN Reason: Hypoglycemia Heparin Sodium (Porcine) (Heparin 5,000 Unit/Ml Vial) 5,000 unit SQ Q12 [facility] Last Admin: 10/10/21 20:23 Dose: 5,000 unit Documented by: Lactated Ringer's (Lactated Ringers) 1,000 mls @ 100 mls/hr IV .Q10H [facility] Last Admin: 10/11/21 05:51 Dose: 100 mls/hr Documented by: Insulin Human Lispro (Insulin Lispro 1 Unit/0.01 Ml Unit) 0 unit SQ ACHS [facility]; Protocol Last Admin: 10/10/21 20:24 Dose: Not Given Documented by: Omeprazole (Omeprazole 20 Mg Capsule) 40 mg PO ACB [facility] Ondansetron HCl (Ondansetron 4 Mg/2 Ml Vial) 4 mg IV Q6HP PRN PRN Reason: Nausea And Vomiting Oxybutynin Chloride (Oxybutynin Chloride 5 Mg Tablet) 5 mg PO BID [facility] Last Admin: 10/10/21 20:23 Dose: 5 mg Documented by: Oxycodone HCl (Oxycodone Hcl 5 Mg Tablet) 10 mg PO Q4HP PRN; Protocol PRN Reason: Per Pain Protocol Last Admin: 10/11/21 03:48 Dose: 10 mg Documented by: Letrozole 2.5 Mg (Tablet) 1 dose PO DAILY [facility] Senna (Sennosides 1 Tablet) 2 tab PO HS [facility] Last Admin: 10/10/21 20:23 Dose: 2 tab Documented by: Sodium Chloride (0.9 % Sodium Chloride 10 Ml Syringe) 10 ml IV Q8 [facility] Last Admin: 10/11/21 05:37 Dose: Not Given Documented by: Sumatriptan Succinate (Sumatriptan Succinate 50 Mg Tablet) 100 mg PO DAILYP PRN PRN Reason: Headache ABG Interpretation ABG results: 10/10/21 10:21 ABG Methemoglobin 0.2 L VBG pH 7.32 VBG pCO2 48.4 VBG pO2 119.7 H VBG HCO3 24.4 VBG Total CO2 25.9 VBG O2 Saturation 92.8 H VBG Base Excess -2 A/P Narrative A/P Narrative: A: #YAMEL on likely CKD III-IV (unknown baseline): likely prerenal -UA was benign #atelectasis: #Acute hypoxic respiratory: 2/2 atelectasis -on room air today #Mild lactic acid elevation: resolved #Hyponatremia, moderate: TSH/cortisol ok. Pt is on HCTZ #Generalized weakness: #DM 2: A1c 6.9 #Normocytic anemia: #HTN/HLD: #GERD: #Chronic pain intermittently on opioids: #h/o breast ca still has a port #Obesity: BMI 40 #Urinary retention: Plan: -IV fluid hold and f/u renal fxn -Hold home lisinopril and metformin -IS, -SSI -hold home HCTZ for hyponatremia -shay placed, will need to f/u with Urology -PT consult. -ppx: Heparin SQ / home ppi Time Spent With Patient Time: Total time spent is greater than 50% in coordination of care (as documented) at patient's floor/unit and/or counseling patient: Total time spent with greater than 50% in coordination of care (as documented) at patient's floor/unit and/or counseling patient:: 25 - 35 minutes QUALITY VTE Deep Vein Thrombosis/Pulmonary Embolism Present on Admission: No
[2021-10-11] MEDS ORDERED: OMEPRAZOLE 20 MG CAPSULE PO SCH (07:30)
[2021-10-11 07:33] LABS: ALT/SGPT 17 U/L (<40); AST/SGOT 24 U/L (<32); Albumin 3.4 gm/dL (3.2-5.2); Albumin/Globulin Ratio 1.1 (1.0-2.3); Alkaline Phosphatase 120 U/L (39-117); Bilirubin,Direct < 0.2 mg/dL (0-0.3); Bilirubin,Total 0.3 mg/dL (0.1-1.0); Blood Urea Nitrogen 14 mg/dL (8-23); Calcium 8.5 mg/dL (8.6-10.4); Carbon Dioxide 25 mmol/L (22-30); Chloride 99 mmol/L (96-108); Glomerular Filtration Rate 78; Glucose 147 mg/dL (70-105); Lactate Dehydrogenase 191 U/L (135-225); Triglycerides 176 mg/dL (<150); Uric Acid 4.5 mg/dL (2.5-8.0)
[2021-10-11] MEDS ORDERED: NON FORMULARY MEDICATION 1 DOSE MISCELL (Omeprazole 40 mg capsule,delayed release(DR/EC)) PO SCH (09:00)
[2021-10-11] MEDS ORDERED: Letrozole 2.5 mg tablet PO SCH (09:00)
[2021-10-11] MEDS: INSULIN LISPRO 1 UNIT/0.01 ML UNIT SQ SCH ×2 (09:06→12:14)
[2021-10-11] MEDS: ATORVASTATIN 40 MG TABLET PO SCH (09:43)
[2021-10-11] MEDS: DOCUSATE SODIUM 100 MG CAPSULE PO SCH (09:43)
[2021-10-11] MEDS: OXYBUTYNIN CHLORIDE 5 MG TABLET PO SCH (09:43)
[2021-10-11] MEDS: HEPARIN 5,000 UNIT/ML VIAL SQ SCH (09:43)
--- NOTE | 2021-10-11 10:16 | Discharge Summary ---
Discharge Provider Provider Patient information: Note initiated : 10/11/21 at 10:13 am Service Date, if different from initiated Date: [] Patient: Maria T King 66 y/o F admitted on 10/10/21 for Slurred speech, weak. Chief Complaint: [] Date of admission: 10/10/21 00:54 Discharge date: 10/11/21 Primary care physician: Unknown Unknown Consults: 10/09/21 Consult to Physician [CONS] Stat Comment: Consulting Provider: Rafat Pimentel Reason For Exam: Physician to Consult Discharge Meds Discharge Medications Home Medications amitriptyline 150 mg tablet 150 mg PO QHS 10/09/21 [History Confirmed 10/09/21 Last Taken Unknown] atorvastatin 40 mg PO DAILY 10/09/21 [History Confirmed 10/09/21 Last Taken Unknown] gabapentin 600 mg tablet 600 mg PO TID 10/09/21 [History Confirmed 10/09/21 Last Taken Unknown] metformin 500 mg tablet 500 mg PO BID 10/09/21 [History Confirmed 10/09/21 Last Taken Unknown] letrozole 2.5 mg tablet 1 tab PO QDAY 10/10/21 [History Confirmed 10/10/21 Last Taken Unknown] lisinopril 5 mg tablet 1 tab PO QDAY 10/10/21 [History Confirmed 10/10/21 Last Taken Unknown] omeprazole 40 mg capsule,delayed release 1 cap PO QDAY 10/10/21 [History Confirmed 10/10/21 Last Taken Unknown] sumatriptan succinate 100 mg tablet 100 mg PO PRN PRN 10/10/21 [History Confirmed 10/10/21 Last Taken Unknown] oxycodone 10 mg tablet 5 mg PO Q6H PRN #1 tab 10/11/21 [Rx Last Taken Unknown] COURSE Hospital Course Hospital course: History of present illness: Ms. King is a 66 year old female with a history of hypertension, hyperlipidemia, type 2 diabetes mellitus, GERD, chronic pain, breast cancer status post chemotherapy and radiation therapy who presented to the emergency department for generalized weakness and was found to have an acute kidney injury. The patient says that she has been feeling generally weak since she completed chemotherapy recently. The patient has a port in her right upper chest for treatment of the breast cancer. In the ED, the patient was tachycardic, low normal blood pressure, had an oxygen requirement of 2 L/min. There is no leukocytosis, hemoglobin was 10.3. Chemistry panel showed a sodium of 128, creatinine 2.9, lactic acid was 2.2. Patient received IV fluids. Chest x-ray was remarkable for possible left upper lobe infiltrates. Hospital medicine was consulted for admission. 10/11 Little nausea but feeling better today. Patient is retaining urine and required Shay catheter placement. Shay catheter placed and renal function much better. I suspect that there was some obstructive uropathy treating to YAMEL. A: #YAMEL on likely CKD III-IV (unknown baseline): prerenal and/or likely related to significant urinary retetion -UA was benign #atelectasis: #Acute hypoxic respiratory: 2/2 atelectasis #Mild lactic acid elevation: resolved #Hyponatremia, moderate: TSH/cortisol ok. Pt is on HCTZ #Generalized weakness: #DM 2: A1c 6.9 #Normocytic anemia: #HTN/HLD: #GERD: #Chronic pain intermittently on opioids: #h/o breast ca still has a port #Obesity: BMI 40 #Urinary retention: Plan: -hold home HCTZ for hyponatremia -shay placed & d/c oxybutynin, will need to f/u with Urology Discharge diagnosis: Acute on chronic kidney disease urinary retention Secondary discharge diagnosis: Acute hypoxic respite failure mild lactic acidosis atelectasis hyponatremia generalized weakness diabetes anemia obesity chronic pain Time Spent with Patient Time attestation: Total time spent providing and/or coordinating discharge services: Time spent: Greater than 30 minutes EXAM Constitutional Vitals: Temp Pulse Resp BP Pulse Ox 97.4 F 77 16 164/84 92 10/11/21 08:00 10/11/21 08:00 10/11/21 08:00 10/11/21 08:00 10/11/21 08:00 Discharge Data Data Completed and Pending Labs on day of discharge: Labs from last 24 hours 10/11/21 10/10/21 10/10/21 05:54 10: 10:21 ABG Methemoglobin 0.2 L VBG pH 7.32 VBG pCO2 48.4 VBG pO2 119.7 H VBG HCO3 24.4 VBG Total CO2 25.9 VBG O2 Saturation 92.8 H VBG Base Excess -2 Carboxyhemoglobin 5.2 H Total Hemoglobin 11.2 L Sodium 133 Potassium 4.1 Chloride 99 Carbon Dioxide 25 Anion Gap 9.0 BUN 14 Creatinine 0.8 GFR Calculation 78 Glucose 147 H Uric Acid 4.5 Calcium 8.5 L Phosphorus 2.0 L Magnesium 1.7 Total Bilirubin 0.3 Direct Bilirubin < 0.2 GGT 61 H AST 24 ALT 17 Alkaline Phosphatase 120 H Lactate Dehydrogenase 191 Total Protein 6.4 Albumin 3.4 Globulin 3.0 Albumin/Globulin Ratio 1.1 Triglycerides 176 H Procalcitonin TSH Cortisol AM Sample 12.2 10/10/21 10/10/21 10:21 10:21 ABG Methemoglobin VBG pH VBG pCO2 VBG pO2 VBG HCO3 VBG Total CO2 VBG O2 Saturation VBG Base Excess Carboxyhemoglobin Total Hemoglobin Sodium Potassium Chloride Carbon Dioxide Anion Gap BUN Creatinine GFR Calculation Glucose Uric Acid Calcium Phosphorus Magnesium Total Bilirubin Direct Bilirubin GGT AST ALT Alkaline Phosphatase Lactate Dehydrogenase Total Protein Albumin Globulin Albumin/Globulin Ratio Triglycerides Procalcitonin 0.19 H TSH 1.04 Cortisol AM Sample Preliminary micro results at discharge 10/09/21 22:10 Blood Culture - Preliminary Blood 10/09/21 21:47 Blood Culture - Preliminary Blood Discharge Plan Patient/Caregiver Discharge Instructions Activity: increase activity as tolerated Diet: Consistent Carbohydrate Activity Restrictions/Additional Instructions: Referral to see urology in 5 to 14 days for urinary retention. Follow-up with PCP in 3 to 7 days. Prescriptions: Continued metformin 500 mg Tablet 500 mg PO BID 0RF gabapentin 600 mg Tablet 600 mg PO TID 0RF amitriptyline 150 mg Tablet 150 mg PO QHS 0RF atorvastatin 40 mg PO DAILY 0RF letrozole 2.5 mg tablet 1 tab PO QDAY 0RF lisinopril 5 mg tablet 1 tab PO QDAY 0RF omeprazole 40 mg capsule,delayed release(DR/EC) 1 cap PO QDAY 0RF sumatriptan succinate 100 mg tablet 100 mg PO PRN PRN (Reason: Headache) 0RF Changed oxycodone 10 mg tablet 5 mg PO Q6H PRN (Reason: Pain) Qty: 1 0RF Discontinued oxybutynin chloride 5 mg Tablet 5 mg PO QDAY 0RF hydrochlorothiazide 12.5 mg capsule 12.5 mg PO QDAY 0RF Follow Up Plan Follow up with: Unknown,Unknown [Primary Care Provider] - Patient Disposition: Home, Self-Care Prognosis: Fair Overall status at discharge: patient is progressing back to baseline Discharge Orders: Discharge Order (Routine); Ordered 10/11/21 Ordered By: Sebastian Melendez [facility] VTE Deep Vein Thrombosis/Pulmonary Embolism Present on Admission: No
[2021-10-11] MEDS ORDERED: HEPARIN SODIUM,PORCINE/PF 500 UNIT/5 ML SYRINGE IV ONE (12:11)
--- NOTE | 2021-10-11 13:37 | EKG ---
[facility] Test Date: 2021-10-09 Pat Name: Maria T King Department: ED Room: Gender: Female E Learning Specialist: KAR : 1955 Requested By: Grayson Pedraza Order Number: [id number] Reading MD: Royce Lockwood Measurements Intervals [place] Rate: 95 P: 70 CO: 140 QRS: 51 QRSD: 99 T: 64 QT: 400 QTc: 503 Interpretive Statements Sinus rhythm Prolonged QT interval Electronically Signed On 10-11-2021 13:37:22 PDT by Royce Lockwood /store/M0/[id number]
--- NOTE | 2021-10-11 13:37 | EKG ---
[facility] Test Date: 2021-10-10 Pat Name: Maria T King Department: [facility] Room: 111 Gender: Female Field Clerk: : 1955 Requested By: Rafat Pimentel Order Number: [id number] Reading MD: Royce Lockwood Measurements Intervals [place] Rate: 88 P: 53 AK: 150 QRS: 25 QRSD: 104 T: 85 QT: 374 QTc: 453 Interpretive Statements Sinus rhythm Nonspecific T abnormalities, lateral leads Electronically Signed On 10-11-2021 13:37:25 PDT by Royce Lockwood /store/M0/[id number]/[id number]
== END 2021-10-11 13:22 | disposition home or self-care (01) | DRG 682 ==
LOC: ED 21:03 → MEDSUR 10-10 00:54
PROVIDERS: ADMIT Internal Medicine; ATTEND Internal Medicine